=== PATIENT | female | born 2000 | race African-American/Black ===

== ENCOUNTER 2019-09-26 04:17 | Inpatient (IN) ==
[2019-09-26] MEDS ORDERED: ROCEPHIN 1 GM in NS 50 ML IV ONE (04:35)
[2019-09-26] MEDS ORDERED: ZITHROMAX PO ONE (04:35)
[2019-09-26] MEDS ORDERED: DUONEB (A & A) INH ONE (04:35)
[2019-09-26] MEDS ORDERED: NS 1,000 ML IV ONE (04:35)
[2019-09-26] MEDS ORDERED: SOLU-MEDROL IV ONE (04:35)
[2019-09-26] MEDS ORDERED: MAGNESIUM SULFATE 2 GM/S.W.I. 2 GM/50 ML IVPB IV ONE (04:37)
--- NOTE | 2019-09-26 04:45 | PROVIDER DOCUMENTATION ---
HPI-Respiratory General - General Chief Complaint: Shortness of Breath Stated Complaint: SOB Time Seen by Provider: 09/26/19 04:29 Source: patient Allergies/Adverse Reactions: Patient Allergies Allergy/AdvReac Type Severity Reaction Status Date / Time No Known Allergies Allergy Verified 06/16/19 11:55 Home Medications: Home Medication List Medication Instructions Recorded Confirmed Last Taken Type Prednisone [Deltasone] 20 mg PO BID #10 tab 09/25/19 09/26/19 Unknown Rx - History of Present Illness-Resp Nature of Presenting Problem: Patient seen here earlier this evening with asthma attack and shortness of b reath, now complains of return of SOB after getting home. States has been admitted to the hospital in the past, but never intubated. No fever. Has had dry cough, sob, itchy/runny eyes and nose. Quality of Pain: reports: tightness Severity in ED: reports: moderate Onset/Duration: reports: 24 hours ago Timing: reports: still present, constant, changing over time, getting worse Context: reports: recent URI Exposure: reports: allergen exposure (seasonal allergies) Cough Quality/Degree: reports: moderate, dry cough Episode Frequency: occasional episodes Current Respiratory Medication Therapy: Initiated albuterol/atrovent inhale, I nitiated A/A nebulizer, Initiated other oral steroid Modifying Factors: improves with: albuterol inhaler. worse with: exertion, coughing Associated Symptoms: reports: chest pain/soreness, cough, lightheadedness, shortness of breath, short of breath, wheezing. denies: flu-like symptoms Similar Symptoms Previously?: Yes Recently seen or treated by another doctor?: Yes (here earlier this evening) Review of Systems - Adult - REVIEW OF SYSTEMS - ADULT Constitutional: reports: no symptoms reported Eyes: reports: no symptoms reported Ears, Nose, Mouth & Throat: reports: no symptoms reported Cardiovascular: reports: no symptoms reported Respiratory: reports: see HPI, cough, dyspnea on exertion, shortness of breath, wheezing. denies: chronic cough Gastrointestinal: reports: no symptoms reported Genitourinary: reports: no symptoms reported Musculoskeletal: reports: no symptoms reported Integumentary: reports: no symptoms reported Neurological: reports: no symptoms reported Psychiatric: reports: no symptoms reported Endocrine: reports: no symptoms reported Hematologic/Lymphatic: reports: no symptoms reported Allergic/Immunologic: reports: see HPI, allergic rhinitis, asthma, hay fever All Other Systems: Reviewed and Negative Past History - Adult - PAST MEDICAL HISTORY-ADULT Review of Records: reports: Old Records Reviewed (This evening's ED visit reviewed), Nursing Assessment Review, Medications Reviewed, Social history reviewed & non-contributory. Major Childhood Illnesses: reports: denies history Cardiovascular: reports: denies history Respiratory: reports: asthma Gastrointestinal: reports: denies history Obstetrical/Gynecological: reports: denies history Genitourinary: reports: denies history Musculoskeletal: reports: denies history Neurological: reports: denies history Psychiatric: reports: other (ADHD) Endocrine/Immune: reports: denies history Other Conditions: reports: denies history - PRIOR SURGERIES/PROCEDURES Surgical/Procedure History: reports: reviewed, not pertinent, tonsillectomy - IMMUNIZATION STATUS Childhood Immunizations: See Nurse Assessment Flu Vaccine: See Nurse Assessment - FAMILY HISTORY Family History: reviewed, not pertinent - SOCIAL HISTORY Smoking: non-smoker Substance Use: none/never Alcohol Use Frequency: rarely Living Situation: family Physical Exam-General - PHYSICAL EXAM-ADULT Initial Vital Signs Reviewed: Yes (tachypneic, tachycardic, low RA sats) - CONSTITUTIONAL General Appearance: alert, mild distress, other (tearful) - EYES Eyes: PERRL/EOMI, pink conjunctivae - HEAD, EARS, NOSE, MOUTH & THROAT HENMT: normocephalic/atraumatic, moist mucous membranes, normal ENT inspection, pharynx normal. negative: hearing deficit - NECK Neck: full range of motion, supple, normal inspection - RESPIRATORY Respiratory: chest non-tender, no pleuratic chest pain, no accessory muscle use, respiratory distress (mild to moderate), decreased breath sounds, wheezing, dull on percussion, increased rate - CARDIOVASCULAR Cardiovascular: normal peripheral pulses, regular rate, rhythm, no edema, no gallop, no JVD, no murmur, tachycardia - GASTROINTESTINAL (ABDOMEN) Abdominal Exam: non tender, soft, no organomegaly, no pulsatile mass. negative: distended - LYMPHATIC Lymphatic: no adenopathy - MUSCULOSKELETAL Back Exam: normal inspection, no CVA tenderness, no vertebral tenderness. negative: decreased range of motion Extremity: normal range of motion, non-tender, normal gait, normal inspection, no pedal edema, normal capillary refill - SKIN Integumentary: normal color, normal turgor, warm/dry - NEUROLOGIC Neurologic: chief [employer] division II-XII nml as tested, grossly normal, no motor/sensory deficits - PSYCHIATRIC Psych/Mental Status: normal mood/affect, normal thought content, normal thought process, oriented x 3 Progress - PLAN OF CARE/RESULTS Progress/Plan/Lab Results: Vital Signs - 8 hr 09/26/19 04:29 09/26/19 05:00 09/26/19 05:18 Temperature 98.9 F Pulse Rate 135 H 121 H 115 H Respiratory Rate 20 30 H 22 Blood Pressure 109/63 115/80 O2 Sat by Pulse Oximetry 90 L 94 L 92 L 09/26/19 05:31 09/26/19 06:11 09/26/19 06:28 Temperature Pulse Rate 126 H 127 H Respiratory Rate 23 25 H Blood Pressure 120/100 101/75 O2 Sat by Pulse Oximetry 92 L 94 L 94 L Bedside Urine ED: Urine Bedside Start: 09/26/19 04:45 Freq: ORDERED Status: Complete Protocol: Activity Type Activity Date Activity User E-Sign Co-Sign Detail Recorded Client Recorded Date Recorded By Document 09/26/19 05:56 [id number] 09/26/19 05:57 [id number] Edit Status 09/26/19 06:09 [id number] Active=>Complete [id number] 09/26/19 06:09 [id number] 09/26/19 05:56 Point of Care [Bedside Point of Care] -Lot # [id number] - Results Negative -Control Line Visible? Yes Laboratory Results - last 24 hr 09/26/19 09/26/19 09/26/19 04:54 04:54 04:54 WBC 12.08 H RBC 5.10 Hgb 14.4 Hct 44.1 MCV 86.5 MCH 28.2 MCHC 32.7 L RDW Std Deviation 14.9 H Plt Count 291 MPV 11.0 H Immature Gran % (Auto) 0.2 Neut % (Auto) 72.1 Lymph % (Auto) 19.0 L Glenn % (Auto) 6.7 Eos % (Auto) 1.9 Baso % (Auto) 0.1 Immature Gran # (Auto) 0.03 Neut # (Auto) 8.71 H Lymph # (Auto) 2.29 Glenn # (Auto) 0.81 H Eos # (Auto) 0.23 Baso # (Auto) 0.01 Specimen Type Sample Site pH pCO2 pO2 HCO3 Base Excess Oxyhemoglobin ABG O2 Sat (Calculated) ABG O2 Saturation ABG Carboxyhemoglobin ABG Methemoglobin Rio Test A-a O2 Difference Total Hemoglobin Lactate Liter Flow Blood Gas Modality FiO2 % Sodium 137 Potassium 3.9 Chloride 100 Carbon Dioxide 24 L Anion Gap 13 BUN 14 Creatinine 0.9 Estimated GFR/1.73 m2 > 60 BUN/Creatinine Ratio 16 Glucose 126 H Calculated Osmolality 276 Calcium 9.2 Magnesium 1.8 Total Bilirubin 0.22 AST 14 ALT 13 Alkaline Phosphatase 114 H Creatine Kinase Troponin T High Sens [id number] Pept < 5 L Total Protein 7.7 Albumin 4.3 Globulin 3.4 Albumin/Globulin Ratio 1.3 Plasma Lactate Urine Source Urine Color Urine Turbidity Urine pH Ur Specific Wilmar Urine Protein Ur Glucose (Stick) Ur Ketones (Stick) Urine Blood Urine Nitrite Urine Bilirubin Urobilinogen Dipstick Urine Leukocytes Urine WBC (Auto) Urine RBC (Auto) U Epithel Cells (Auto) Urine Bacteria (Auto) 09/26/19 09/26/19 09/26/19 04:54 04:54 05:00 WBC RBC Hgb Hct MCV MCH MCHC RDW Std Deviation Plt Count MPV Immature Gran % (Auto) Neut % (Auto) Lymph % (Auto) Glenn % (Auto) Eos % (Auto) Baso % (Auto) Immature Gran # (Auto) Neut # (Auto) Lymph # (Auto) Glenn # (Auto) Eos # (Auto) Baso # (Auto) Specimen Type ARTERIAL Sample Site R RADIAL pH 7.37 pCO2 41 pO2 59 L HCO3 23.5 Base Excess -1.6 Oxyhemoglobin 91.2 L ABG O2 Sat (Calculated) 17.8 ABG O2 Saturation 93.9 L ABG Carboxyhemoglobin 2.10 ABG Methemoglobin 0.8 Rio Test YES A-a O2 Difference 146.0 Total Hemoglobin 13.9 Lactate 1.50 Liter Flow 4.0 Blood Gas Modality CANNULA FiO2 % 36.0 Sodium Potassium Chloride Carbon Dioxide Anion Gap BUN Creatinine Estimated GFR/1.73 m2 BUN/Creatinine Ratio Glucose Calculated Osmolality Calcium Magnesium Total Bilirubin AST ALT Alkaline Phosphatase Creatine Kinase 163 Troponin T High Sens < 6 [id number] Pept Total Protein Albumin Globulin Albumin/Globulin Ratio Plasma Lactate Urine Source Urine Color Urine Turbidity Urine pH Ur Specific [place] Urine Protein Ur Glucose (Stick) Ur Ketones (Stick) Urine Blood Urine Nitrite Urine Bilirubin Urobilinogen Dipstick Urine Leukocytes Urine WBC (Auto) Urine RBC (Auto) U Epithel Cells (Auto) Urine Bacteria (Auto) 09/26/19 09/26/19 05:08 05:52 WBC RBC Hgb Hct MCV MCH MCHC RDW Std Deviation Plt Count MPV Immature Gran % (Auto) Neut % (Auto) Lymph % (Auto) Glenn % (Auto) Eos % (Auto) Baso % (Auto) Immature Gran # (Auto) Neut # (Auto) Lymph # (Auto) Glenn # (Auto) Eos # (Auto) Baso # (Auto) Specimen Type Sample Site pH pCO2 pO2 HCO3 Base Excess Oxyhemoglobin ABG O2 Sat (Calculated) ABG O2 Saturation ABG Carboxyhemoglobin ABG Methemoglobin Rio Test A-a O2 Difference Total Hemoglobin Lactate Liter Flow Blood Gas Modality FiO2 % Sodium Potassium Chloride Carbon Dioxide Anion Gap BUN Creatinine Estimated GFR/1.73 m2 BUN/Creatinine Ratio Glucose Calculated Osmolality Calcium Magnesium Total Bilirubin AST ALT Alkaline Phosphatase Creatine Kinase Troponin T High Sens [id number]-Vzarfzhedwm Pept Total Protein Albumin Globulin Albumin/Globulin Ratio Plasma Lactate 1.3 Urine Source CLEAN CATCH Urine Color YELLOW Urine Turbidity HAZY Urine pH 6.0 Ur Specific Wil[place] 1.034 Urine Protein TRACE A Ur Glucose (Stick) NEGATIVE Ur Ketones (Stick) NEGATIVE Urine Blood NEGATIVE Urine Nitrite POSITIVE A Urine Bilirubin NEGATIVE Urobilinogen Dipstick NORMAL Urine Leukocytes SMALL A Urine WBC (Auto) 20-40 A Urine RBC (Auto) <10 U Epithel Cells (Auto) >10 A Urine Bacteria (Auto) 1+ Orders Category Date Time Status Cardiac Monitoring NOW Care 09/26/19 05:30 Active ED: Urine Bedside ORDERED Care 09/26/19 04:45 Completed IV Insertion NOW Care 09/26/19 05:30 Completed NEWS Score >or=5:Order NEWS Bundle S.O. NOW Care 09/26/19 04:29 Active Notify Provider of NEWS Score NOW Care 09/26/19 05:30 Active Saline Loc NOW Care 09/26/19 04:36 Active CHEST-PORTABLE [RAD] Stat Exams 09/26/19 04:36 Completed ABG [RESP] Routine Lab 09/26/19 05:00 Completed BLOOD CULTURE [BLDCUL] Stat Lab 09/26/19 05:08 Results CBC WITH DIFF [HEME] Stat Lab 09/26/19 04:54 Completed CK PROFILE [SP CHEM] Stat Lab 09/26/19 04:54 Completed COMPREHENSIVE METABOLIC PANEL [CHEM] Stat Lab 09/26/19 04:54 Completed D-DIMER [COAG] Stat Lab 09/26/19 04:54 Received LACTATE, PLASMA [CHEM] Stat Lab 09/26/19 05:08 Completed LACTATE, PLASMA [CHEM] Stat Lab 09/26/19 08:00 Uncollected LACTATE, PLASMA [CHEM] Stat Lab 09/26/19 11:00 Uncollected MAGNESIUM [CHEM] Stat Lab 09/26/19 04:54 Completed PRO B-NATRIURETIC PEPTIDE Stat Lab 09/26/19 04:54 Completed PROTIME WITH INR [COAG] Stat Lab 09/26/19 04:54 Received PTT [COAG] Stat Lab 09/26/19 04:54 Received SPUTUM CULTURE WITH GRAM STAIN [RM] Urgent Lab 09/26/19 04:35 Uncollected TROPONIN T HIGH SENSITIVITY Stat Lab 09/26/19 04:54 Completed URINALYSIS W/POSS RFLX CULT [URINALYSIS] Stat Lab 09/26/19 05:52 Completed URINE CULTURE [RM] Routine Lab 09/26/19 05:52 Received 0.9% Sodium Chloride Inj [Ns] 1,000 ml Med 09/26/19 04:35 Discontinued IV 999 mls/hr Albuterol 2.5MG/Ipratrop 0.5MG [Duoneb (A & A)] Med 09/26/19 04:35 Discontinued 9 ml INH NOW ONE Azithromycin [Zithromax] Med 09/26/19 05:40 Discontinued 250 mg .ROUTE .STK-MED ONE Azithromycin [Zithromax] Med 09/26/19 04:35 Discontinued 500 mg PO NOW ONE Budesonide [Pulmicort] Med 09/26/19 06:15 Discontinued 0.5 mg INH NOW ONE CefTRIAXONE [Rocephin] 1 gm Med 09/26/19 04:35 Discontinued 0.9% Sodium Chloride Inj [Ns] 50 ml IV NOW Magnesium Sulfate 2 gm/S.w.i. Med 09/26/19 04:37 Discontinued 2 gm in 50 ml IV NOW Methylprednisolone Sod Succ [Solu-Medrol] Med 09/26/19 04:35 Discontinued 125 mg IV NOW ONE Aerosol Treatments Routine Oth 09/26/19 04:36 Completed Aerosol Treatments Routine Oth 09/26/19 06:15 Completed Aerosol Treatments Stat Oth 09/26/19 04:36 Completed Aerosol Treatments Stat Ot 09/26/19 06:15 Completed O2 Per Protocol Stat Ot 09/26/19 05:30 Completed Pulse Oximetry Stat Ot 09/26/19 04:36 Completed EKG [EKG] Stat Ther 09/26/19 05:28 Draft Result Diagrams: 09/26/19 04:54 09/26/19 04:54 - REASSESSMENT Reassessment #1 Time Reassessed: 06:13 Status: improving (Better after 4 neb treatments, IV solumedrol, IV mag sulfate, IV rocephin/zithromax. Still requires supplemental O2 to maintain sats. Patient has 3 SIRS criteria (HR, RR, WBC), so has sepsis, but not SEVERE sepsis or SEPTIC SHOCK) - EKG 1 Time of EKG reading by physician:: 05:43 EKG Read and Signed by:: Luis Lizarraga EKG Interpretation (*Must complete 3 of following elements*): Abnormal Rate: 121 Rhythm: Sinus tach Bruce: normal QRS: poor R wave progression NM Interval: normal ST Wave: normal - XRAY 1 XRAY Study: Chest Impression: Abnormal (Read by me at 0605, Sl hyperexpanded lung styles, increased bilateral perihilar markings, ? lower airspace disease. No pneumothorax. Borderline CM), See EMR Report ( CHEST-PORTABLE - 09/26/2019 INDICATION: cough COMPARISON: 03/26/2019 FINDINGS: The lungs are normally expanded and clear. Heart size and mediastinal contours are normal. No pneumothorax or pleural effusion. IMPRESSION: Negative exam. Electronically signed by Christiano Chowdhury 09/26/2019 6:18 AM 09/26/19617 Interpreting Physician: Christiano Chowdhury MD Dictated Date/Time: 09/26/19617 cc: Luis Lizarraga MD; Sagrario Davila) - CONSULTS/PCP/HOSPITALIST Notification #1 *Consult/PCP/Hospitalist*: Paul paged at 0611 Time Discussed: 06:50 Consult Disposition: Will see in ED (on hi), Admit Departure - Departure Date of Disposition Decision: 09/26/19 Time of Disposition Decision: 06:50 DIAGNOSIS: Hypoxemia requiring supplemental oxygen, Urinary tract infection in female Asthma with status asthmaticus in adult Qualifiers: Asthma severity: severe Asthma persistence: persistent Qualified Code(s): J45.52 - Severe persistent asthma with status asthmaticus Sepsis without acute organ dysfunction Qualifiers: Sepsis type: sepsis due to unspecified organism Qualified Code(s): A41.9 - Sepsis, unspecified organism Disposition: ADMITTED INPATIENT 09 Certified Medical Emergency: Emergent Condition: Fair Referrals and Follow-Ups: Sagrario Davila CRNP [Primary Care Provider] - - Critical Care Note This patient required my direct & personal management of CC.: Yes Total Time (mins): 40 Critical Care Statement: This patient required my direct personal management to treat or rule out processes, the absence of which, could potentiallly result in sudden, clinically significant life or limb threatening deterioration. Attestation - Physician/ NERI Attestation Patient care was provided by Advanced Practice Provider:: No The physician spent face to face time with patient:: Yes Advanced Practice Provider documentation review:: Supervising physician onsite and consulted in the evaluation and care of this patient. The physician did have a face to face encounter with the patient.
[2019-09-26 05:13] LABS: ALLEN TEST YES; BE -1.6 mmoll (-3.0-3.0); BLOOD TYPE ARTERIAL; HCO3-(ACT) 23.5 mmoll (20.0-26.0); METHB 0.8 % (0.0-1.5); O2(CT) 17.8 mL/dL (15.0-23.0); O2HB 91.2 % (95.0-99.0); PCO2(98.6) 41 mmHg (35-45); PO2(98.6) 59 mmHg (60-100); SAMPLE BLOOD; SAO2 93.9 % (95.0-100.0); THB 13.9 g/dL (11.5-17.4); pH(98.6) 7.37 (7.35-7.45)
[2019-09-26 05:14] LABS: MODALITY CANNULA
[2019-09-26 05:26] LABS: BASO# 0.01 X1000 (0.0-0.2); BASO% 0.1 % (0.0-0.8); EOS# 0.23 X1000 (0.0-0.7); EOS% 1.9 % (0.0-10.0); HEMATOCRIT 44.1 % (37.0-47.0); HEMOGLOBIN 14.4 g/dL (12.0-16.0); IMM GRAN# 0.03 X1000 (0.0-0.04); IMM GRAN% 0.2 % (0.0-0.5); LYMPH# 2.29 X1000 (1.2-3.4); MCH 28.2 PG (27-31); MCHC 32.7 g/dL (33-37); MCV 86.5 FL (81-99); MONO# 0.81 X1000 (0.11-0.59); MONO% 6.7 % (1.7-9.3); NEUT# 8.71 X1000 (1.4-6.5); NEUT% 72.1 % (42.2-75.2); PLT 291 X1000 (130-400); RDW 14.9 % (11.5-14.5); WBC 12.08 X1000 (4.8-10.8)
[2019-09-26 05:36] LABS: AGAP 13; ALB/GLOB RATIO 1.3; ALBUMIN 4.3 g/dL (3.5-5.0); ALKALINE PHOSPHATASE 114 U/L (32-104); BUN 14 mg/dL (8-22); CALCIUM 9.2 mg/dL (8.8-10.2); CHLORIDE 100 mmol/L (98-107); COSMO 276; CREATININE 0.9 mg/dL (0.5-0.9); ESTIMATED GFR > 60; GLUCOSE 126 mg/dL (70-104); GOT 14 U/L (10-30); GPT 13 U/L (10-36); MAGNESIUM 1.8 mg/dL (1.5-2.7); POTASSIUM 3.9 mmol/L (3.5-5.1); SODIUM 137 mmol/L (136-145); TCO2 24 mmol/L (25-35); TOTAL BILIRUBIN 0.22 mg/dL (0.20-1.00); TOTAL PROTEIN 7.7 g/dL (6.3-8.3)
[2019-09-26] MEDS ORDERED: ZITHROMAX ONE (05:40)
--- NOTE | 2019-09-26 05:46 | EKG Report ---
Test Performed on : 09/26/2019 05:40:39 AM Test Reason : SOB Blood Pressure : / mmHG Vent. Rate : 121 BPM Atrial Rate : 121 BPM P-R Int : 144 ms QRS Dur : 086 ms QT Int : 326 ms P-R-T Axes : 059 037 026 degrees QTc Int : 462 ms Sinus tachycardia. Otherwise normal ECG When compared with ECG of 26-MAR-2019 10:19, No significant change was found Unconfirmed Result
[2019-09-26 06:02] LABS: URINE SOURCE CLEAN CATCH
[2019-09-26 06:11] LABS: BILIRUBIN URINE NEGATIVE (NEGATIVE); BLOOD URINE NEGATIVE (NEGATIVE); COLOR YELLOW; GLUCOSE URINE NEGATIVE (NEGATIVE); KETONE URINE NEGATIVE (NEGATIVE); LEUKOCYTES URINE SMALL (NEGATIVE); NITRITE URINE POSITIVE (NEGATIVE); PROTEIN URINE TRACE mg/dL (NEGATIVE); SP GRAVITY URINE 1.034; TURBIDITY URINE HAZY (CLEAR); UROBILINOGEN URINE NORMAL (NORMAL)
[2019-09-26 06:12] LABS: UR EPITHELIAL CELLS >10 /HPF (<10); URINE BACTERIA 1+ /HPF; URINE RBC <10 /HPF (<10); URINE WBC 20-40 /HPF (<10)
[2019-09-26] MEDS ORDERED: PULMICORT INH ONE (06:15)
--- NOTE | 2019-09-26 06:20 | Diag Imaging Result Doc PS360 ---
CHEST-PORTABLE - 09/26/2019 INDICATION: cough COMPARISON: 03/26/2019 FINDINGS: The lungs are normally expanded and clear. Heart size and mediastinal contours are normal. No pneumothorax or pleural effusion. IMPRESSION: Negative exam. Electronically signed by Christiano Chowdhury 09/26/2019 6:18 AM
[2019-09-26 07:34] LABS: INR 0.96; PROTIME 12.8 Seconds (11.0-16.0); PTT 26.8 Seconds (22.3-41.8)
[2019-09-26] MEDS ORDERED: DUONEB (A & A) INH PRN (09:09)
[2019-09-26] MEDS ORDERED: ZOFRAN IV PRN (09:09)
--- NOTE | 2019-09-26 10:36 | HISTORY AND PHYSICAL ---
PRIMARY CARE PROVIDER: STACEY Lima. CHIEF COMPLAINT: Shortness of breath. HISTORY OF PRESENT ILLNESS: Ms. Lake is a 19-year-old, female, who carries a past medical history of asthma, seasonal allergies, and ADHD, who came to the ED yesterday complaining of coughing, sneezing, dyspnea, and stuffy ears. She was diagnosed with allergic rhinitis, and discharged home. She came back to the ED on 09/26/2019 complaining of shortness of breath and having an asthma attack. She reported in the remote past, she has been hospitalized for asthma. We do not have any records of that, and she has never been intubated. She was given IV antibiotics, bronchodilators, supplemental O2, and high-dose steroids. Continued to have some hypoxemia without her oxygen on, so she will be admitted to [facility]. As of note, she was also taking her oxygen off and not wanting to keep it on. She has been educated on the importance of keeping her oxygen on. PAST MEDICAL HISTORY: ADHD, seasonal allergies, asthma. PAST SURGICAL HISTORY: Tonsillectomy. FAMILY HISTORY: Uncle and aunt with asthma. Another aunt with diabetes. Denies any cancer or heart disease. SOCIAL HISTORY: She denies tobacco, alcohol, vaping, marijuana. HOME MEDICATIONS: Albuterol nebulizer, Adderall. REVIEW OF SYSTEMS: A 12-point review of systems was complete and negative, except for those mentioned in the HPI. She was positive for chest tightness, wheezing, shortness of breath. Denies any dysuria, urinary frequency, nausea, vomiting, diarrhea, abdominal pain, dizziness, fever, chills, cough, or cardiac-type chest pain. PHYSICAL EXAMINATION: VITAL SIGNS: Temperature was 98.9 degrees, heart rate 123, respirations 30, blood pressure 120/53, O2 is 92% on 4 L nasal cannula. GENERAL: Ms. Lake is a pleasant, 19-year-old, female, who is sitting up in the bed in no acute distress. HEENT: Atraumatic, normocephalic. PERRL. NECK: Supple. Trachea midline. CARDIOVASCULAR: S1, S2 appreciated. Tachycardic rhythm. RESPIRATORY: Lung sounds, she does have some faint inspiratory wheezes noted, decreased in the bases. GI: Soft, nontender, nondistended. Positive bowel sounds in all 4 quadrants. LOWER EXTREMITIES: Negative for edema. NEUROLOGIC: No focal deficits noted. DIAGNOSTIC DATA: Chest x-ray was a negative exam. LABORATORY DATA: White count 12, hemoglobin and hematocrit 14 and 44, platelet count is 291,000. Sodium 137, potassium 3.9, BUN 14, creatinine 0.9, blood glucose is 126. First lactate is 1.3, second lactate 2.5. Urinalysis shows 1+ bacteria, positive for nitrates. ASSESSMENT AND PLAN: 1. Asthma exacerbation secondary to seasonal allergies. She reports weather changes are her trigger. We will continue with bronchodilators, intravenous antibiotics, high-dose steroids, aggressive pulmonary toilet, and supplemental oxygen. 2. Hypoxemia secondary to #1. Will continue on supplemental oxygen. 3. Seasonal allergies. Will continue Claritin. 4. Attention-deficit/hyperactivity disorder. The patient reports she is on Adderall. Will hold that for the time being. 5. Probable urinary tract infection. It was 1+ bacteria and nitrate positive. Will await urine culture. She is currently being covered with current antibiotics. 6. Elevated lactate. The patient does not appear to be toxic. However, she was given Rocephin in the emergency department. We will continue to trend. She also got a liter bolus. Further recommendations to follow physician evaluation, laboratory and diagnostic data. Dictated by STACEY Horan for Elian Ruiz MD cc: Elian Ruiz MD
[2019-09-26] MEDS: SOLU-MEDROL IV SCH ×3 (10:38→23:09)
[2019-09-26] MEDS: CLARITIN-D 24 HR PO SCH (10:39)
[2019-09-26] MEDS: DUONEB (A & A) INH SCH ×4 (10:44→23:40)
--- NOTE | 2019-09-26 13:35 | HISTORY AND PHYSICAL ---
ADDENDUM: The patient is seen and examined by me [id number]. All the laboratory, vital signs and images were reviewed. The patient presented to the emergency department with a chief complaint of shortness of breath for 1 day. She does have a past medical history of asthma that is likely related to seasons, also ADHD. She came in yesterday to the emergency department, but she was discharged home with treatment, but she is coming back for worsening shortness of breath. She will be admitted for treatment with oxygen supplementation, breathing treatment, steroids, antibiotics. She does have a urinalysis that showed nitrates and bacteria, but she is not complaining of dysuria. PHYSICAL EXAMINATION: GENERAL: On my physical exam, she is a 19-year-old female in mild respiratory distress. PULMONARY: Decreased breath sounds globally with prolonged expiratory phase and expiratory wheezing bilaterally throughout. The rest of the physical exam is basically benign. No fever, no chills. I agree with the rest of the nurse practitioner's assessment and plan. cc: Elian Ruiz MD
[2019-09-26] MEDS: D5 1/2 NS 1,000 ML IV SCH (16:15)
[2019-09-26] MEDS: TYLENOL PO PRN (19:34)
[2019-09-26] MEDS: PULMICORT INH SCH (20:20)
[2019-09-27] MEDS: DUONEB (A & A) INH SCH ×6 (03:40→23:35)
[2019-09-27] MEDS: SOLU-MEDROL IV SCH ×4 (04:39→23:00)
[2019-09-27] MEDS: LEVAQUIN 750 MG/D5W 750 MG/150 ML IVPB IV SCH (04:39)
[2019-09-27] MEDS: D5 1/2 NS 1,000 ML IV SCH ×2 (04:42→18:51)
[2019-09-27 05:55] LABS: BASO# 0.01 X1000 (0.0-0.2); BASO% 0.1 % (0.0-0.8); EOS# 0.01 X1000 (0.0-0.7); EOS% 0.1 % (0.0-10.0); HEMOGLOBIN 13.4 g/dL (12.0-16.0); IMM GRAN# 0.07 X1000 (0.0-0.04); IMM GRAN% 0.4 % (0.0-0.5); LYMPH# 1.05 X1000 (1.2-3.4); LYMPH% 5.4 % (20.5-51.1); MCH 28.6 PG (27-31); MCHC 32.7 g/dL (33-37); MCV 87.4 FL (81-99); MONO# 0.61 X1000 (0.11-0.59); MONO% 3.1 % (1.7-9.3); MPV 10.8 FL (7.4-10.4); NEUT# 17.71 X1000 (1.4-6.5); NEUT% 90.9 % (42.2-75.2); PLT 280 X1000 (130-400); RBC 4.69 XMIL (4.2-5.4); RDW 14.9 % (11.5-14.5); WBC 19.46 X1000 (4.8-10.8)
[2019-09-27 06:42] LABS: LYMPHS 6 % (21-51); SEGS 90 % (42-75)
[2019-09-27 06:44] LABS: AGAP 12; ALB/GLOB RATIO 1.2; ALBUMIN 3.9 g/dL (3.5-5.0); ALKALINE PHOSPHATASE 84 U/L (32-104); BUN 7 mg/dL (8-22); CALCIUM 8.8 mg/dL (8.8-10.2); CHLORIDE 99 mmol/L (98-107); COSMO 266; CREATININE 0.7 mg/dL (0.5-0.9); ESTIMATED GFR > 60; GLUCOSE 164 mg/dL (70-104); GOT 11 U/L (10-30); GPT 11 U/L (10-36); POTASSIUM 4.5 mmol/L (3.5-5.1); SODIUM 132 mmol/L (136-145); TCO2 21 mmol/L (25-35); TOTAL BILIRUBIN 0.26 mg/dL (0.20-1.00); TOTAL PROTEIN 7.1 g/dL (6.3-8.3)
--- NOTE | 2019-09-27 07:36 | Diag Imaging Result Doc PS360 ---
EXAM: CHEST-PORTABLE INDICATION: short of breath TECHNIQUE: One view COMPARISON: 09/26/2019 FINDINGS: Inspiration is suboptimal. There has been an increase in prominence of central vasculature indicating development of pulmonary venous congestion. No other new consolidation is identified. Cardiac silhouette is stable. IMPRESSION: Development of pulmonary venous congestion. Electronically signed by Brian Pearson 09/27/2019 7:34 AM
[2019-09-27] MEDS: PULMICORT INH SCH ×2 (08:19→20:20)
[2019-09-27] MEDS: CLARITIN-D 24 HR PO SCH (09:59)
--- NOTE | 2019-09-27 11:24 | PROGRESS NOTE ---
DATE: 09/27/2019 SUBJECTIVE: The patient is sitting at the bedside. She seems to be feeling a bit better compared with yesterday. She is still wheezing bilaterally and she is still short of breath. White blood cell count increased, likely due to the steroids, which I will continue. PHYSICAL EXAMINATION: Vital signs: Temperature 97.6 degrees, pulse 118, respiratory rate 20, blood pressure 125/52, oxygen saturation 94% on 4 L of nasal cannula. HEENT: Head normocephalic, no trauma. PERRLA. Neck: Supple. No JVD. No masses. Central trachea. Chest: Decreased breath sounds globally with prolonged expiratory phase and expiratory wheezing. Abdomen: Soft, nontender, nondistended. No hepatosplenomegaly. Extremities: No edema, no clubbing, no cyanosis. Neurological: The patient is awake, alert, she is oriented x3. No focal deficits. LABORATORY DATA: WBC 19.4, hemoglobin 13.4, hematocrit 41, platelets 280,000. Sodium 132, potassium 4.5, chloride 99, bicarbonate 21, BUN 7, creatinine 0.7, glucose 164, calcium 8.8. AST 11, ALT 11, alkaline phosphatase 84, albumin 3.9. ASSESSMENT AND PLAN: 1. Asthma exacerbation secondary to seasonal allergies. As per the patient, weather changes are her trigger. We will continue with the same management for now. She seems to be getting a little bit better. 2. Hypoxemic respiratory failure due to #1. 3. Seasonal allergies. Continue with Claritin. 4. Attention deficit hyperactivity disorder, stable. 5. Possible urinary tract infection. She is not complaining of dysuria but she is covered with antibiotics. 6. Elevated lactate. The patient does not seem to be toxic. She was given antibiotics at the emergency department. Vital signs are stable. She is tolerating p.o. We will continue with the same management. cc: Elian Ruiz MD
[2019-09-27] MEDS: TYLENOL PO PRN (17:23)
[2019-09-28] MEDS: TYLENOL PO PRN ×3 (00:25→20:37)
[2019-09-28] MEDS: DUONEB (A & A) INH SCH ×6 (03:35→23:23)
[2019-09-28] MEDS: LEVAQUIN 750 MG/D5W 750 MG/150 ML IVPB IV SCH (04:26)
[2019-09-28] MEDS: SOLU-MEDROL IV SCH ×3 (04:26→23:29)
[2019-09-28] MEDS: D5 1/2 NS 1,000 ML IV SCH ×2 (04:26→18:05)
[2019-09-28 06:22] LABS: BASO# 0.01 X1000 (0.0-0.2); BASO% 0.1 % (0.0-0.8); HEMATOCRIT 40.3 % (37.0-47.0); HEMOGLOBIN 13.1 g/dL (12.0-16.0); IMM GRAN# 0.06 X1000 (0.0-0.04); IMM GRAN% 0.3 % (0.0-0.5); LYMPH# 1.35 X1000 (1.2-3.4); MCH 28.3 PG (27-31); MCHC 32.5 g/dL (33-37); MONO# 0.65 X1000 (0.11-0.59); MONO% 3.4 % (1.7-9.3); MPV 10.6 FL (7.4-10.4); NEUT# 17.12 X1000 (1.4-6.5); NEUT% 89.2 % (42.2-75.2); PLT 317 X1000 (130-400); RBC 4.63 XMIL (4.2-5.4); RDW 14.9 % (11.5-14.5); WBC 19.19 X1000 (4.8-10.8)
[2019-09-28 06:48] LABS: HEMOGLOBIN A1C 5.5 % (4.8-6.0)
[2019-09-28 07:11] LABS: AGAP 10; BUN 11 mg/dL (8-22); CALCIUM 8.4 mg/dL (8.8-10.2); CHLORIDE 103 mmol/L (98-107); COSMO 273; CREATININE 0.7 mg/dL (0.5-0.9); ESTIMATED GFR > 60; GLUCOSE 160 mg/dL (70-104); POTASSIUM 4.1 mmol/L (3.5-5.1); SODIUM 135 mmol/L (136-145); TCO2 22 mmol/L (25-35)
[2019-09-28] MEDS: CLARITIN-D 24 HR PO SCH (08:17)
[2019-09-28] MEDS: PULMICORT INH SCH ×2 (08:56→21:51)
[2019-09-28] MEDS ORDERED: BLISTEX MEDICATED BERRY LIP BALM TOP PRN (12:00)
--- NOTE | 2019-09-28 13:31 | PROGRESS NOTE ---
DATE: 09/28/2019 SUBJECTIVE: The patient is sitting at the bedside. She seems to be feeling better, just end- expiratory wheezing. I will decrease the dose of the steroids. Hopefully tomorrow she can go home. OBJECTIVE: Vital Signs: Temperature 98.7 degrees, pulse 105, respiratory rate 17, blood pressure 141/92, oxygen saturation 100% on 3 L of nasal cannula. HEENT: Head normocephalic. No trauma. PERRLA. Neck: Supple. No JVD. No masses. Central trachea. Chest: Decreased breath sounds globally with prolonged expiratory phase and expiratory wheezing. Abdomen: Soft, nontender, nondistended. No hepatosplenomegaly. Extremities: No edema, no clubbing, no cyanosis. Neurological examination: The patient is awake. She is alert. She is following commands. LABORATORY: WBC 19.1, hemoglobin 13.1, hematocrit 40.3, platelets 317,000. Sodium 135, potassium 4.1, chloride 103, bicarbonate 22, BUN 11, creatinine 0.7 glucose 160, calcium 8.4. ASSESSMENT AND PLAN: 1. Asthma exacerbation secondary to seasonal allergies, she seems to be doing better, end- expiratory wheezing. I will decrease the dose of the steroids. Hopefully tomorrow she can be discharged home probably with oxygen. 2. Hypoxemic respiratory failure due to number 1. 3. Seasonal allergies. Continue with Claritin. 4. Attention deficit hyperactivity disorder, stable. 5. Possible urinary tract infection, negative cultures though. 6. Elevated like lactate, patient does not seem to be toxic. Continue antibiotics. She is getting better. cc: Elian Ruiz MD
[2019-09-29] MEDS: DUONEB (A & A) INH SCH ×3 (03:30→11:53)
[2019-09-29] MEDS: LEVAQUIN 750 MG/D5W 750 MG/150 ML IVPB IV SCH (03:44)
[2019-09-29 07:41] LABS: HEMATOCRIT 41.9 % (37.0-47.0); HEMOGLOBIN 13.8 g/dL (12.0-16.0); MCH 28.5 PG (27-31); MCHC 32.9 g/dL (33-37); MCV 86.4 FL (81-99); MPV 10.6 FL (7.4-10.4); RBC 4.85 XMIL (4.2-5.4); RDW 14.5 % (11.5-14.5); WBC 19.01 X1000 (4.8-10.8)
[2019-09-29 07:57] LABS: AGAP 11; BUN 11 mg/dL (8-22); CALCIUM 8.7 mg/dL (8.8-10.2); CHLORIDE 101 mmol/L (98-107); COSMO 274; CREATININE 0.7 mg/dL (0.5-0.9); ESTIMATED GFR > 60; GLUCOSE 172 mg/dL (70-104); SODIUM 135 mmol/L (136-145); TCO2 23 mmol/L (25-35)
[2019-09-29] MEDS: PULMICORT INH SCH (08:22)
[2019-09-29] MEDS: D5 1/2 NS 1,000 ML IV SCH (09:17)
[2019-09-29] MEDS: CLARITIN-D 24 HR PO SCH (09:18)
--- NOTE | 2019-09-29 09:46 | EKG Report ---
Test Performed on : 09/29/2019 09:02:22 AM Test Reason : Tachycardia Blood Pressure : / mmHG Vent. Rate : 142 BPM Atrial Rate : 142 BPM P-R Int : 124 ms QRS Dur : 078 ms QT Int : 300 ms P-R-T Axes : 060 027 020 degrees QTc Int : 461 ms Critical Test Result: High HR Sinus tachycardia. Cannot rule out Anterior infarct , age undetermined Abnormal ECG When compared with ECG of 26-SEP-2019 05:40, (Unconfirmed) No significant change was found Confirmed by Janak Benavidez MD ([id number]) on 09/29/2019 5:05:56 PM
[2019-09-29 11:28] VITALS: BP 146/83
[2019-09-29] MEDS: SOLU-MEDROL IV SCH (12:45)
--- NOTE | 2019-09-29 12:47 | DISCHARGE SUMMARY ---
ADMISSION DATE: 09/26/2019 DISCHARGE DATE: 09/29/2019 DIAGNOSES: 1. Asthma exacerbation secondary to seasonal allergies. 2. Hypoxemia secondary to #1. 3. Seasonal allergies. 4. Attention deficit hyperactivity disorder. MICROBIOLOGY: 1. Blood cultures x2 revealed no growth after 48 hours. 2. Urine culture revealed no pathogenic growth. 3. Sputum culture revealed normal girish. HOSPITAL COURSE: Ms. Lake presented to the emergency room complaining of shortness of breath. She was found to be hypoxemic, having an asthma exacerbation. She was treated with bronchodilators as well as steroids and antibiotics. Supplemental oxygen was given. Thankfully, she has improved. She is maintaining O2 saturations 94-96% on room air. We continued her Claritin. It was felt that she could have a urinary tract infection, although cultures returned negative. Lactate was elevated. We continued her home medications. Thankfully, she is ready for discharge. DISCHARGE VITAL SIGNS: Blood pressure is 127/77, with a heart rate of 80, respirations 20, temperature 97.8 degrees oral, with room air saturations of 94-97%. DISCHARGE PHYSICAL EXAMINATION: Cardiovascular: Regular rate and rhythm. S1, S2 appreciated. Peripheral pulses palpable x4 extremities. Pulmonary: She does have decreased breath sounds throughout with no increased work of breathing noted. Gastrointestinal: Abdomen is soft, nontender, nondistended, with bowel sounds in all 4 quadrants. Neurologic: She is alert and oriented. DISCHARGE MEDICATIONS: 1. Claritin-D 1 p.o. daily. 2. Medrol Dosepak take as directed. 3. Xopenex inhaler 1 puff q.6 hours p.r.n. wheezing. 4. Tylenol 650 q.6 hours p.r.n. FOLLOWUP: 1. Her primary care provider, STACEY Lima, she is to call Monday to schedule an appointment to be seen in the next week. 2. She has been instructed to call to be seen sooner or return to the ER for increasing shortness of breath, any PND, orthopnea, any chest pain, palpitations, temperature greater than 101, or for any questions or concerns that she may have. She is being discharged home in stable condition with family members. This was a greater than 30 minute discharge. Dictated by STACEY Matias for Elian Ruiz MD cc: STACEY Matias MD
== END 2019-09-29 15:05 | disposition home or self-care (01) | DRG 202 ==
LOC: ED 04:17 → 2N 08:45 → 3N 09-28 19:19
PROVIDERS: ATTEND Internal Medicine